=== PATIENT | female | born 2000 | race Caucasian/White ===

== ENCOUNTER 2024-05-04 10:08 | Emergency (ER) | payer OTHER ==
[~2024-05-04] VITALS: Ht 154.9 cm; Wt 77.1 kg
[2024-05-04 10:41] VITALS: BP 141/87; TEMP 98.6; O2SAT 99
[2024-05-04] MEDS ORDERED: IBUPROFEN 600 MG TABLET ONE (10:51)
[2024-05-04] MEDS: IBUPROFEN 600 MG TABLET PO ONE (10:55)
[2024-05-04] MEDS ORDERED: IBUP-1953 PO (11:30)
== END 2024-05-04 11:41 | disposition home or self-care (01) ==
LOC: ER 10:34
DX: J02.8 Acute pharyngitis due to other specified organisms (principal); Z20.822 Contact with and (suspected) exposure to COVID-19
CPT/HCPCS: 86403-TC

== ENCOUNTER 2024-05-11 20:53 | Emergency (ER) | payer OTHER ==
[~2024-05-11] VITALS: Ht 154.9 cm; Wt 77.1 kg
[~2024-05-11 20:53] MED LIST: IBUP-1953 PO
[2024-05-11 21:15] VITALS: BP 132/84; TEMP 99
[2024-05-11] MEDS ORDERED: AMOX875T2 PO (21:22)
[2024-05-11 21:24] VITALS: O2SAT 98
== END 2024-05-11 21:25 | disposition home or self-care (01) ==
LOC: ER 20:55
DX: J02.0 Streptococcal pharyngitis (principal); J45.909 Unspecified asthma, uncomplicated; Z79.899 Other long term (current) drug therapy

== ENCOUNTER 2024-11-03 13:23 | Emergency (ER) | payer OTHER ==
[~2024-11-03] VITALS: Ht 162.6 cm; Wt 68.0 kg
[~2024-11-03 13:23] MED LIST changes: +AMOX875T2 PO
[2024-11-03 13:47] VITALS: BP 127/104; TEMP 98.4; O2SAT 97
[2024-11-03] MEDS ORDERED: AMOX-430 PO (14:32)
[2024-11-03] MEDS ORDERED: IBUP-1955 PO (14:32)
== END 2024-11-03 14:55 | disposition home or self-care (01) ==
LOC: ER 13:25
DX: J02.9 Acute pharyngitis, unspecified (principal); J45.909 Unspecified asthma, uncomplicated